=== PATIENT | female | born 1930 | race Caucasian/White ===

== ENCOUNTER 2019-02-13 12:04 | Inpatient (IN) ==
[2019-02-13] MEDS ORDERED: IPRATROPIUM/ALBUTEROL 3 ML AMPUL.NEB NEB ONE (12:08)
[2019-02-13] MEDS ORDERED: DILTIAZEM 25 MG/5 ML VIAL IV ONE ×2 (12:17→12:58)
[2019-02-13 12:46] LABS: Basophils # (Auto) 0 K/mcL (0.0-0.3); Basophils % (Auto) 0.3 % (0.0-2.0); Eosinophils # (Auto) 0.1 K/mcL (0.0-0.7); Eosinophils % (Auto) 1.5 % (0.0-7.0); Granulocytes % (Auto) 66.9 % (38.0-78.0); Lymphocytes # (Auto) 1.8 K/mcL (1.5-4.8); Lymphocytes % (Auto) 21.5 % (15.5-49.0); Mean Cell Volume 83.1 fL (80.0-100.0); Mean Corpuscular HGB Conc 32.1 g/dL (31.0-36.0); Monocytes # (Auto) 0.8 K/mcL (0.1-0.9); Monocytes % (Auto) 9.8 % (1.0-12.0); Platelet Count 289 K/mcL (140-440); Red Cell Distribution Width 16.3 % (11.5-14.5)
--- NOTE | 2019-02-13 12:47 | Emergency Department Note ---
SOB HPI - General Chief Complaint: Shortness of Breath/Dyspnea Stated Complaint: SOB Time Seen by Provider: 02/13/19 12:09 Source: patient Mode of arrival: wheelchair Limitations: no limitations - History of Present Illness 88-year-old female in ED with shortness of breath, sudden onset. 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 Patient states she is been feeling fine, does not take medications. Patient has not had any heart history or lung history. Patient fairly active. Patient has no pain at this time, no changes in bowel or bladder, no chest discomfort. MD Complaint: shortness of breath Onset (ago): minute(s) (10) Severity: moderate Consistency/Duration: constant Improves with: medication (Cardizem) Associated symptoms: Denies: chest pain, pain with inspiration, fever, cough, wheezing, lower extremity pain Treatment prior to arrival: none - Related Data Home Medications Medication Instructions Recorded Confirmed Instaflex PO BID 07/19/16 07/19/16 Instaflex Advanced PO .QD 07/19/16 07/19/16 Vital Reds Powder PO .QD 07/19/16 07/19/16 Allergies Allergy/AdvReac Type Severity Reaction Status Date / Time Penicillins [PENICILLINS] Allergy Unknown IT WAS SO Verified 02/13/19 12:05 LONG AGO I DON'T KNOW triamcinolone Allergy Unknown Unknown Verified 02/13/19 12:05 [From Nasacort AQ] Review of Systems All systems ED: reviewed and negative except as stated. 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) Adenomatous colon polyp (Chronic) Memory loss (Chronic) Osteopenia (Chronic) Hearing loss (Chronic) Right foot pain (Chronic) Hallux valgus (Chronic) DJD (degenerative joint disease) (Chronic) Flat foot (Chronic) H/O colonoscopy (Chronic) H/O: hysterectomy (Chronic) Migraine (Chronic) Arthritis (Chronic) Diverticulitis (Acute) Constipation (Acute) Past Surgical History H/O colonoscopy (Chronic) History of bilateral oophorectomy (Chronic) History of cataract extraction (Chronic) History of nasal polypectomy (Chronic) History of surgery (Chronic) History of tonsillectomy and adenoidectomy (Chronic) Family History Mother Arthritis Disorder of thyroid Grandmother Arthritis Sister-1 Malignant neoplasm of breast Sister-2 Malignant neoplasm Medical history: Reports: other Psychiatric history: Reports: no psych history - Social History smoking status: Former smoker Physical Exam Limitations: no limitations General appearance: alert, in distress (patient was shortness of breath) Head: atraumatic, normocephalic, normal inspection Eye: Present: normal appearance, PERRL, EOMI. Absent: conjunctival injection ENT: normal oropharynx, mucous membranes moist, TM's normal bilaterally, normal external ear exam Neck: Present: normal inspection. Absent: tenderness, lymphadenopathy Chest: Present: normal inspection, symmetric chest wall rise. Absent: tenderness Respiratory: Present: normal lung sounds bilaterally. Absent: respiratory distress, rales/crackles, wheezes, stridor Cardiovascular: Present: tachycardia (156 upon arrival), irregular rhythm. Abs ent: systolic murmur, diastolic murmur Abdominal: Present: soft, normal bowel sounds. Absent: distention, tenderness, guarding, rebound, rigidity Extremities: Present: normal inspection. Absent: pedal edema Back: Present: normal inspection. Absent: tenderness, CVA tenderness (R), CVA tenderness (L) Neurological: Present: alert, oriented X3, normal gait Psychiatric: Present: normal affect, normal mood. Absent: depressed, agitated, anxious, flat affect Skin: Present: warm, dry, intact, normal color. Absent: cool, diaphoretic Course Vital Signs Temperature 97.7 F 02/13/19 12:06 Pulse Rate 150 H 02/13/19 12:06 Respiratory Rate 30 H 02/13/19 12:06 Blood Pressure 146/112 02/13/19 12:06 Pulse Oximetry (%) 96 02/13/19 12:06 Temperature 97.7 F 02/13/19 15:41 Pulse Rate 83 02/13/19 15:41 Respiratory Rate 25 H 02/13/19 15:41 Blood Pressure 135/85 02/13/19 15:41 Pulse Oximetry (%) 95 02/13/19 15:41 Shortness of Breath/Dyspnea - MDM Narrative Medical decision making narrative: WBC 8.5, sodium 137, potassium 4.1, BUN 18, creatinine 1.0, troponin 0.01, p roBNP 1945.0 Nebulizer treatment with DuoNeb provided upon arrival, vagal maneuver attempted without any change in patient's heart rate 159. EKG with Sushil fib RVR. 20 mg IV Cardizem this slowed heart rate down to 110, second bolus 25 mg IV Cardizem and drip started patient A. fib approximately 80-88, patient provided 500 mg by mouth azithromycin. Consulted with who admitted pt and advised to get blood cultures and provide pt 2G Rocephin. - Lab Data Lab results reviewed: Yes I reviewed the patient's lab results. Result diagrams: 02/13/19 12:16 02/13/19 12:16 Lab Results 02/13/19 02/13/19 02/13/19 Range/Units 12:16 12:16 12:16 WBC 8.5 (4.5-11.0) K/mcL RBC 5.20 (4.00-5.20) M/mcL Hgb 13.9 (12.0-15.0) g/dL Hct 43.2 (36.0-48.0) % MCV 83.1 (80.0-100.0) fL MCH 26.7 (26.0-34.0) pg MCHC 32.1 (31.0-36.0) g/dL RDW 16.3 H (11.5-14.5) % Plt Count 289 (140-440) K/mcL MPV 10.2 (7.4-10.4) fL Gran % 66.9 (38.0-78.0) % Lymph % (Auto) 21.5 (15.5-49.0) % [place] % (Auto) 9.8 (1.0-12.0) % Eos % (Auto) 1.5 (0.0-7.0) % Baso % (Auto) 0.3 (0.0-2.0) % Gran # 5.7 (1.8-8.0) K/mcL Lymph # (Auto) 1.8 (1.5-4.8) K/mcL [place] # (Auto) 0.8 (0.1-0.9) K/mcL Eos # (Auto) 0.1 (0.0-0.7) K/mcL Baso # (Auto) 0 (0.0-0.3) K/mcL Sodium 137 (133-145) mmol/L Potassium 4.1 (3.3-5.1) mmol/L Chloride 101 (96-108) mmol/L Carbon Dioxide 21 L (22-30) mmol/L Anion Gap 15.0 (8-16) BUN 18 (8-23) mg/dl Creatinine 1.0 (0.6-1.1) mg/dl GFR Calculation 50 Glucose 168 H (70-105) mg/dL Calcium 9.3 (8.6-10.4) mg/dl Total Bilirubin 0.7 (0.0-1.0) mg/dL AST 38 H (0-37) U/l ALT 40 (0-40) U/l Alkaline Phosphatase 82 (39-117) U/L Total Creatine Kinase (24-170) IU/L CK-MB (CK-2) (0-2.9) ng/ml Myoglobin (25-58) ng/ml Troponin T < 0.01 (0-0.03) ng/ml NT-Pro-B Natriuret Pep 1945.0 H (0-450) pg/ml Total Protein 7.0 (5.9-8.4) gm/dL Albumin 4.3 (3.2-5.2) gm/dL Globulin 2.7 (2.2-3.7) gm/dL Albumin/Globulin Ratio 1.6 (1.0-2.3) 02/13/19 Range/Units 12:16 WBC (4.5-11.0) K/mcL RBC (4.00-5.20) M/mcL Hgb (12.0-15.0) g/dL Hct (36.0-48.0) % MCV (80.0-100.0) fL MCH (26.0-34.0) pg MCHC (31.0-36.0) g/dL RDW (11.5-14.5) % Plt Count (140-440) K/mcL MPV (7.4-10.4) fL Gran % (38.0-78.0) % Lymph % (Auto) (15.5-49.0) % [place] % (Auto) (1.0-12.0) % Eos % (Auto) (0.0-7.0) % Baso % (Auto) (0.0-2.0) % Gran # (1.8-8.0) K/mcL Lymph # (Auto) (1.5-4.8) K/mcL [place] # (Auto) (0.1-0.9) K/mcL Eos # (Auto) (0.0-0.7) K/mcL Baso # (Auto) (0.0-0.3) K/mcL Sodium (133-145) mmol/L Potassium (3.3-5.1) mmol/L Chloride (96-108) mmol/L Carbon Dioxide (22-30) mmol/L Anion Gap (8-16) BUN (8-23) mg/dl Creatinine (0.6-1.1) mg/dl GFR Calculation Glucose (70-105) mg/dL Calcium (8.6-10.4) mg/dl Total Bilirubin (0.0-1.0) mg/dL AST (0-37) U/l ALT (0-40) U/l Alkaline Phosphatase (39-117) U/L Total Creatine Kinase 65 (24-170) IU/L CK-MB (CK-2) 2.6 (0-2.9) ng/ml Myoglobin 58 (25-58) ng/ml Troponin T (0-0.03) ng/ml NT-Pro-B Natriuret Pep (0-450) pg/ml Total Protein (5.9-8.4) gm/dL Albumin (3.2-5.2) gm/dL Globulin (2.2-3.7) gm/dL Albumin/Globulin Ratio (1.0-2.3) - Radiology Data Radiology results reviewed: Yes I reviewed the patient's radiology results. Chest x-ray: INDICATION: Dyspnea TECHNIQUE: PA and lateral upright chest x-ray COMPARISON: None FINDINGS:Bilateral lower lobe infiltrates and small effusions. Findings are consistent with pneumonia. Follow-up radiographs recommended. Heart size is within normal limits. There is no evidence for pulmonary edema or significant pulmonary congestion. Raina and mediastinum are negative. IMPRESSION: 1. Bilateral lower lobe infiltrates and small effusions 2. Findings are most consistent with pneumonia Disposition Pt seen by [employer]PERATOR/PA only: No (Chin) Clinical Impression: Atrial fibrillation with RVR Community acquired pneumonia Qualifiers: Laterality: left Lung location: lower lobe of lung Qualified Code(s): J18.1 - Lobar pneumonia, unspecified organism Disposition: Xfer As Inpt ([facility]) Condition: Good Time of Disposition: 16:04
--- NOTE | 2019-02-13 12:54 | XRay Report ---
INDICATION: Dyspnea TECHNIQUE: PA and lateral upright chest x-ray COMPARISON: None FINDINGS:Bilateral lower lobe infiltrates and small effusions. Findings are consistent with pneumonia. Follow-up radiographs recommended. Heart size is within normal limits. There is no evidence for pulmonary edema or significant pulmonary congestion. Raina and mediastinum are negative. IMPRESSION: 1. Bilateral lower lobe infiltrates and small effusions 2. Findings are most consistent with pneumonia Interpreted and Authenticated by: Finn Pratt 02/13/19
[2019-02-13 13:11] LABS: ALT/SGPT 40 U/l (0-40); Albumin 4.3 gm/dL (3.2-5.2); Albumin/Globulin Ratio 1.6 (1.0-2.3); Alkaline Phosphatase 82 U/L (39-117); Blood Urea Nitrogen 18 mg/dl (8-23)
[2019-02-13] MEDS ORDERED: DILTIAZEM 125 MG in DEXTROSE 5% IN WATER 100 ML IV SCH (13:15)
[2019-02-13] MEDS ORDERED: AZITHROMYCIN 250 MG TABLET PO ONE (13:22)
[2019-02-13] MEDS ORDERED: cefTRIAXone 2 GM in DEXTROSE 5% IN WATER 50 ML IV ONE (14:36)
--- NOTE | 2019-02-13 14:41 | Internal Med History&Physical ---
Medical - H&P: [facility] Patient information: Note initiated : 02/13/19 at 2:40 pm Service Date, if different from initiated Date: [] Patient: Neris Quintanilla 88 y/o F admitted on for Shortness of breath. Chief Complaint: [] Chief complaint: shortness of breath/palpitations History of present illness: Ms. 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 She felt sensation of chest pressure along with difficulty ambulating, weakness. Patient subsequently was evaluated in the ER. Initial workup was consistent with A. fib RVR along with bilateral pneumonia. Patient was started on diltiazem drip. Heart rate improved from 150s to 120s. Was also started on antibiotic coverage after cultures were drawn. Patient does not endorse to sick contact or aspiration episode. She denies changes in medications. She denies weight gain, weight loss, smoking. She is unclear about pneumonia vaccine status. She is accompanied by her daughter. She wss able to answer most the question and was able to talk in full sentences. She denies chest palpitations, lightheadedness, dizziness, shaking chills, drenching sweats, diarrhea or dysuria or abdominal pain. She denies nausea vomiting. She denies any similar episodes in the past or taking [id number] supplements, weight loss medication or cough syrup. She has been feeling poorly and weak over the last 5-7 days but did not have any productive sputum or cough At the time of evaluation patient is alert oriented. She is able to endorse history as above. 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 had migraines in high school. Osteopenia (Chronic) Right foot pain (Chronic) Sprain, ACL (Chronic) Surgical History History of surgery (Chronic) Benign liver tumor excision History of nasal polypectomy (Chronic) right History of bilateral oophorectomy (Chronic) History of cataract extraction (Chronic) History of tonsillectomy and adenoidectomy (Chronic) 193 H/O colonoscopy (Chronic) 2012 H/O: hysterectomy (Chronic) 1979 Family History Mother Arthritis Disorder of thyroid Grandmother Arthritis Sister-1 Malignant neoplasm of breast Sister-2 Malignant neoplasm Blood cancer Social History marital status: occupational status: retired physical activity: walking smoking status: Former smoker alcohol intake frequency: 0-2 drinks per day substance use type: does not use Medical - H&P: Meds Home Medications Medication Instructions Recorded Confirmed Type Instaflex PO BID 07/19/16 07/19/16 History Instaflex Advanced PO .QD 07/19/16 07/19/16 History Vital Reds Powder PO .QD 07/19/16 07/19/16 History Allergies Allergy/AdvReac Type Severity Reaction Status Date / Time Penicillins [PENICILLINS] Allergy Unknown IT WAS SO Verified 02/13/19 16:40 LONG AGO I DON'T KNOW triamcinolone Allergy Unknown Unknown Verified 02/13/19 16:40 [From Nasacort AQ] Medical - H&P: Exam - Constitutional Vitals: Temp Pulse Resp BP Pulse Ox 97.7 F 85 30 H 141/74 92 02/13/19 12:06 02/13/19 13:11 02/13/19 13:11 02/13/19 13:11 02/13/19 13:11 General appearance: no acute distress Exam: Patient alert and oriented Head normocephalic Oral cavity dry No ear discharge No scleral icterus Neck no lymphadenopathy S1 and S2 regular rhythm Diminished breath sounds bilaterally posterior and lateral chest with late inspiratory crackles Abdomen soft nontender Lower extremity no cyanosis or clubbing or joint swelling Skin no suspicious lesion Psych alert cooperative Neuro nonfocal Medical - H&P: Reslt - Labs CBC & Chem 7: 02/14/19 03:24 02/14/19 03:24 Labs: Short CBC 02/13/19 Range/Units 12:16 WBC 8.5 (4.5-11.0) K/mcL Hgb 13.9 (12.0-15.0) g/dL Hct 43.2 (36.0-48.0) % Plt Count 289 (140-440) K/mcL BMP 02/13/19 12:16 Sodium 137 Potassium 4.1 Chloride 101 Carbon Dioxide 21 L BUN 18 Creatinine 1.0 Glucose 168 H Calcium 9.3 Cardiac Enzymes 02/13/19 Range/Units 12:16 Troponin T < 0.01 (0-0.03) ng/ml Liver Function 02/13/19 Range/Units 12:16 Total Bilirubin 0.7 (0.0-1.0) mg/dL AST 38 H (0-37) U/l ALT 40 (0-40) U/l Alkaline Phosphatase 82 (39-117) U/L Albumin 4.3 (3.2-5.2) gm/dL Medical - H&P: A/P (1) Atrial fibrillation with RVR Current visit: Yes Status: Acute * Afib RVR- initiated control measures. Continue CCB/beta liz . Await echocardiogram. Chads score 1. Start aspirin. If persist patient will need 28 days of anticoagulation before cardioversion * B/L PNA- Community Acquired vs Aspiration. Check mycoplasma/Streptococcus serology. Check pro-calcitonin. Continue antibiotics * Prophylaxis heparin * Full code Plan * Continue antibiotics * Check pro calcitonin * Await echocardiogram * CCB/Beta liz for rate control * PT OT/nutrition support * Inpatient telemetry admitted
[2019-02-13 14:42] LABS: Creatine Kinase 65 IU/L (24-170); Creatine Kinase MB 2.6 ng/ml (0-2.9); Myoglobin 58 ng/ml (25-58)
[2019-02-13] MEDS ORDERED: ONDANSETRON 4 MG/2 ML VIAL IV PRN (15:54)
[2019-02-13] MEDS ORDERED: cefTRIAXone 2 GM in DEXTROSE 5% IN WATER 50 ML IV SCH (15:54)
[2019-02-13] MEDS ORDERED: ACETAMINOPHEN 1,000 MG/100 ML BOTTLE IV PRN (15:54)
[2019-02-13] MEDS ORDERED: POTASSIUM CHLORIDE 20 MEQ PACKET PO PRN (15:54)
[2019-02-13] MEDS ORDERED: ACETAMINOPHEN 325 MG TABLET PO PRN (15:54)
[2019-02-13] MEDS ORDERED: MAGNESIUM SULFATE 2 GM/50 ML BAG IV PRN (15:54)
[2019-02-13] MEDS ORDERED: LEVOFLOXACIN 750 MG/150 ML BAG IV SCH (15:54)
[2019-02-13 16:27] LABS: C-Reactive Protein 0.3 mg/dl (0.0-0.8)
[2019-02-13] MEDS: DILTIAZEM 125 MG in 0.9 % SODIUM CHLORIDE 100 ML IV SCH (16:32)
[2019-02-13] MEDS: METOPROLOL TARTRATE 5 MG/5 ML VIAL IV SCH (17:11)
[2019-02-13] MEDS: LEVOFLOXACIN 750 MG/150 ML BAG IV SCH (17:41)
--- NOTE | 2019-02-13 19:32 | Emergency Department Note ---
ED Note Addendum Note Addendum: seen inconsultation with kelvin and agree with need to admitt
[2019-02-13] MEDS: BUDESONIDE 0.5 MG/2 ML AMPUL.NEB NEB SCH (20:24)
[2019-02-13] MEDS: DOCUSATE SODIUM 100 MG CAPSULE PO SCH (21:19)
[2019-02-13] MEDS: SENNOSIDES/DOCUSATE SODIUM 1 TAB TABLET PO SCH (21:19)
[2019-02-13] MEDS: 0.9 % SODIUM CHLORIDE 10 ML SYRINGE IV SCH (22:00)
[2019-02-14] MEDS: DILTIAZEM 125 MG in 0.9 % SODIUM CHLORIDE 100 ML IV SCH (05:48)
[2019-02-14] MEDS: 0.9 % SODIUM CHLORIDE 10 ML SYRINGE IV SCH ×3 (05:48→20:14)
[2019-02-14 06:06] LABS: Mean Cell Volume 83.3 fL (80.0-100.0); Mean Corpuscular HGB Conc 32.1 g/dL (31.0-36.0); Platelet Count 240 K/mcL (140-440); RBC 4.41 M/mcL (4.00-5.20); Red Cell Distribution Width 16.5 % (11.5-14.5)
[2019-02-14 06:35] LABS: ALT/SGPT 32 U/l (0-40); Albumin 3.4 gm/dL (3.2-5.2); Albumin/Globulin Ratio 1.5 (1.0-2.3); Alkaline Phosphatase 62 U/L (39-117); Bilirubin,Direct < 0.2 mg/dL (0.0-0.3); Blood Urea Nitrogen 14 mg/dl (8-23); Gamma Glutamyl Transpeptidase 31 U/L (5-36); Uric Acid 4.5 mg/dL (2.5-8.0)
[2019-02-14 06:38] LABS: Anisocytosis 1+ (NONE SEEN); Eosinophils % (Manual) 3 % (0-7); Lymphocytes % 24 % (15-49); Monocytes % (Manual) 8 % (1-12); Platelet Estimate NORMAL (NORMAL); RBC Morphology ABNORM (NORMAL); Segmented Neutrophils % 65 % (38-78)
[2019-02-14] MEDS: METOPROLOL TARTRATE 5 MG/5 ML VIAL IV PRN ×2 (07:24→19:51)
[2019-02-14] MEDS: IPRATROPIUM/ALBUTEROL 3 ML AMPUL.NEB NEB PRN ×2 (07:27→20:04)
[2019-02-14] MEDS: BUDESONIDE 0.5 MG/2 ML AMPUL.NEB NEB SCH ×2 (07:27→20:04)
[2019-02-14] MEDS ORDERED: cefTRIAXone 2 GM in DEXTROSE 5% IN WATER 50 ML IV SCH (09:00)
--- NOTE | 2019-02-14 10:05 | XRay Report ---
INDICATION: Dyspnea. Pneumonia. TECHNIQUE: AP chest x-ray,portable upright COMPARISON: Previous chest x-ray dated 02/13/2019 FINDINGS:Previous examination demonstrated bibasilar pulmonary parenchymal density. Findings are worse. There are bilateral, predominantly bibasilar infiltrates. There are bilateral pleural effusions. Pulmonary vascularity is prominent. Appearance is consistent with acute congestive heart failure. This may be superimposed upon bibasilar pneumonia. Clinical correlation and follow-up radiographs recommended IMPRESSION: 1. Interval worsening since 02/13/2019 2. Findings consistent with congestive heart failure Interpreted and Authenticated by: Finn Pratt 02/14/19
[2019-02-14] MEDS: ASPIRIN 81 MG TAB.CHEW CHEWED SCH (10:07)
[2019-02-14] MEDS: MULTIVIT,THER IRON,CA,FA & MIN 1 TABLET PO SCH (10:07)
[2019-02-14] MEDS: DOCUSATE SODIUM 100 MG CAPSULE PO SCH ×2 (10:07→20:13)
[2019-02-14] MEDS: METOPROLOL TARTRATE 25 MG TABLET PO SCH ×2 (10:07→20:13)
--- NOTE | 2019-02-14 10:35 | Internal Med Progress Note ---
Medical - PN: Subj Patient information: Note initiated : 02/14/19 at 10:33 am Service Date, if different from initiated Date: [] Patient: Neris Quintanilla 88 y/o F admitted on 02/13/19 for Shortness of breath. Chief Complaint: [] Interval history: Ms. 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 She felt sensation of chest pressure along with difficulty ambulating, weakness. Patient subsequently was evaluated in the ER. Initial workup was consistent with A. fib RVR along with bilateral pneumonia. Patient was started on diltiazem drip. Heart rate improved from 150s to 120s. Was also started on antibiotic coverage after cultures were drawn. Patient does not endorse to sick contact or aspiration episode. She denies changes in medications. She denies weight gain, weight loss, smoking. She is unclear about pneumonia vaccine status. She is accompanied by her daughter. She wss able to answer most the question and was able to talk in full sentences. She denies chest palpitations, lightheadedness, dizziness, shaking chills, dr enching sweats, diarrhea or dysuria or abdominal pain. She denies nausea vomiting. She denies any similar episodes in the past or taking [id number]-[id number] supplements, weight loss medication or cough syrup. She has been feeling poorly and weak over the last 5-7 days but did not have any productive sputum or cough At the time of evaluation patient is alert oriented. She is able to endorse history as above. 10-family members at bedside. Patient feeling poorly this morning with intermittent RVR recording beta liz. Started on oral beta liz. Chest x-ray shows pulmonary edema with CHF. Start aggressive diuresis. Repeat echocardiogram. De-escalate antibiotics in the setting of negative pro- calcitonin and likely exacerbation of bilateral infiltrates as pulmonary edema. Continue telemetry monitoring - Constitutional Vitals: Vital Signs Temp Pulse Resp BP Pulse Ox 97.3 F 74 18 124/75 94 02/14/19 07:20 02/14/19 07:44 02/14/19 07:49 02/14/19 07:34 02/14/19 07:49 Period Temp Pulse Resp BP Sys/Thornton Pulse Ox Last 24 Hr 97.3 F-98.6 F 56-150 14-32 110-146/64-112 86-98 Intake and Output 02/13/19 02/14/19 02/14/19 21:59 05:59 13:59 Intake Total 572 62 42 Output Total 350 Balance 222 62 42 Weight 147 lb Intake & Output: Intake & Output 02/13/19 02/14/19 02/14/19 21:59 05:59 13:59 Intake Total 572 62 42 Output Total 350 Balance 222 62 42 Weight 147 lb Intake: IV 212 62 42 Cardizem 125 mg In Dextrose 5% 12 in Water 100 ml @ 5 MG/HR 5 mls /hr IV Q12H DAREK Rx#:[id number] Rocephin 2 gm In Dextrose 5% in 50 Water 50 ml @ 100 mls/hr IV ONCE ONE Rx#:[id number] Oral 360 Output: Void Amount 350 Other: Meal Dinner Percent of Meal Consumed 100% 0% Feeding Ability Assist with Tray Set Up Urine Appearance Clear Urine Color Pale Stool Size Moderate Stool Color Brown Stool Consistency Soft Liquid # Voids 1 2 1 # Bowel Movements 1 General appearance: no acute distress Exam: Diminished breath sounds bases Alert oriented Labored breathing No telemetry events except for A. fib RVR No lymphedema Medical - PN: Obj Da - Labs CBC & Chem 7: 02/14/19 03:24 02/14/19 03:24 Labs: Abnormal Lab Results 02/14/19 02/14/19 02/13/19 03:24 03:24 12:16 Hgb 11.8 L RDW 16.5 H RBC Morphology Abnorm A Anisocytosis 1+ A Carbon Dioxide 19 L 21 L Glucose 168 H AST 38 H NT-Pro-B Natriuret Pep 1945.0 H Total Protein 5.7 L 02/13/19 12:16 Hgb RDW 16.3 H RBC Morphology Anisocytosis Carbon Dioxide Glucose AST NT-Pro-B Natriuret Pep Total Protein Meds: Medications Acetaminophen (Tylenol) 650 mg PO Q4-6HP PRN PRN Reason: PAIN/FEVER > 101 Albuterol/Ipratropium (Duoneb) 3 ml NEB Q4HP PRN PRN Reason: Shortness Of Breath Last Admin: 02/14/19 07:27 Dose: 3 ml Documented by: Aspirin (Aspirin) 81 mg CHEWED DAILY [facility] Last Admin: 02/14/19 10:07 Dose: 81 mg Documented by: Budesonide (Pulmicort) 0.5 mg NEB Q12 [facility] Last Admin: 02/14/19 07:27 Dose: 0.5 mg Documented by: Docusate Sodium (Colace) 100 mg PO BID [facility] Last Admin: 02/14/19 10:07 Dose: 100 mg Documented by: Furosemide (Lasix) 20 mg IV BIDD [facility] Magnesium Sulfate (Magnesium Sulfate) 2 gm in 50 mls @ 50 mls/hr IV UD PRN PRN Reason: MG = or < 1.7 Acetaminophen (Ofirmev) 1,000 mg in 100 mls @ 200 mls/hr IV Q6HP PRN PRN Reason: PAIN/FEVER > 101 Levofloxacin (Levaquin) 750 mg in 150 mls @ 100 mls/hr IV Q48H [facility]; Protocol Last Infusion: 02/13/19 19:11 Dose: Infused Documented by: Iron Carb/Multivit/Three Way/Folic Acid (Multivitamin W/Minerals) 1 tab PO DAILY [facility] Last Admin: 02/14/19 10:07 Dose: 1 tab Documented by: Metoprolol Tartrate (Lopressor) 5 mg IV Q5M PRN PRN Reason: Tachyarrhythmias Stop: 02/19/19 17:26 Last Admin: 02/14/19 07:24 Dose: 5 mg Documented by: Metoprolol Tartrate (Lopressor) 25 mg PO BID [facility] Last Admin: 02/14/19 10:07 Dose: 25 mg Documented by: Ondansetron HCl (Zofran) 4 mg IV Q4-6HP PRN PRN Reason: Nausea And Vomiting Potassium Chloride (Klor-Con) 40 meq PO DAILYP PRN PRN Reason: K+ < 3.5 Senna/Docusate Sodium (Senna Plus Tablet) 1 tab PO HS [facility] Last Admin: 02/13/19 21:19 Dose: Not Given Documented by: Sodium Chloride (Saline Flush) 10 ml IV Q8 [facility] Last Admin: 02/14/19 05:48 Dose: 10 ml Documented by: Medical - PN: A/P - Time Spent With Patient Total time spent is greater than 50% in coordination of care (as documented) at patient's floor/unit and/or counseling patient: 25 - 35 minutes (1) Atrial fibrillation with RVR Status: Acute Assessment and plan: * Acute decompensated heart failure with pulmonary edema-echocardiogram/initiate aggressive diuresis. Optimize CHF management based on echo finding. * Afib RVR- rate controlled on beta liz. Await echocardiogram. Chads score 1. Start aspirin. If persist patient will need 28 days of anticoagulation before cardioversion * B/L PNA- Community Acquired vs Aspiration. Check mycoplasma/Streptococcus serology. De-escalate antibiotics as pro-calcitonin negative * Prophylaxis heparin * Full code Plan * Start aggressive diuresis * De-escalate antibiotics * Await echocardiogram * Beta liz for rate control * PT OT/nutrition support Current Visit: Yes Medical - PN: Qual - VTE Deep Vein Thrombosis/Pulmonary Embolism Present on Admission: No
[2019-02-14] MEDS: FUROSEMIDE 20 MG/2 ML VIAL IV SCH ×2 (11:09→16:12)
[2019-02-14 17:22] LABS: Appearance,Urine CLEAR; Bacteria,Urine 0 /hpf (0); Bilirubin,Urine NEG (NEG); Color,Urine YELLOW; Glucose,Urine (UA) NEGATIVE (NEG); Leukocyte Esterase,Urine NEG /uL (NEG); Mucus,Urine FEW /hpf (0); Protein,Urine NEG (NEG); Urine Blood NEG mg/dL (<0.03); Urine Hyaline Cast 4 /lpf (0-2); Urine RBC < 1 /hpf (0-1); Urine Squamous Epithelial Cell < 1 /hpf (0-4); Urine WBC 3 /hpf (0-4); Urobilinogen,Urine NEG (NEG)
[2019-02-14] MEDS: SENNOSIDES/DOCUSATE SODIUM 1 TAB TABLET PO SCH (20:13)
[2019-02-14] MEDS: DILTIAZEM 25 MG/5 ML VIAL IV PRN (22:00)
[2019-02-14] MEDS ORDERED: DILTIAZEM 25 MG/5 ML VIAL IV ONE (22:02)
[2019-02-15] MEDS ORDERED: DILTIAZEM 25 MG/5 ML VIAL IV ONE (03:14)
[2019-02-15 05:40] LABS: Mean Cell Volume 83.4 fL (80.0-100.0); Mean Corpuscular HGB Conc 32.2 g/dL (31.0-36.0); Platelet Count 254 K/mcL (140-440); RBC 4.71 M/mcL (4.00-5.20); Red Cell Distribution Width 16.6 % (11.5-14.5)
[2019-02-15 06:03] LABS: ALT/SGPT 35 U/l (0-40); Albumin 3.7 gm/dL (3.2-5.2); Albumin/Globulin Ratio 1.5 (1.0-2.3); Alkaline Phosphatase 76 U/L (39-117); Bilirubin,Direct < 0.2 mg/dL (0.0-0.3); Blood Urea Nitrogen 15 mg/dl (8-23); Gamma Glutamyl Transpeptidase 39 U/L (5-36); Uric Acid 4.6 mg/dL (2.5-8.0)
[2019-02-15 06:21] LABS: Eosinophils % (Manual) 3 % (0-7); Lymphocytes % 18 % (15-49); Monocytes % (Manual) 9 % (1-12); Platelet Estimate NORMAL (NORMAL); RBC Morphology NORMAL (NORMAL); Segmented Neutrophils % 70 % (38-78)
[2019-02-15] MEDS: 0.9 % SODIUM CHLORIDE 10 ML SYRINGE IV SCH ×4 (06:45→21:08)
[2019-02-15] MEDS: FUROSEMIDE 20 MG/2 ML VIAL IV SCH ×2 (08:22→15:42)
[2019-02-15] MEDS: MULTIVIT,THER IRON,CA,FA & MIN 1 TABLET PO SCH (08:23)
[2019-02-15] MEDS: ASPIRIN 81 MG TAB.CHEW CHEWED SCH (08:23)
[2019-02-15] MEDS: DOCUSATE SODIUM 100 MG CAPSULE PO SCH ×2 (08:24→19:03)
[2019-02-15] MEDS ORDERED: METOPROLOL SUCCINATE 50 MG TAB.XL.24H PO SCH (09:00)
[2019-02-15] MEDS: BUDESONIDE 0.5 MG/2 ML AMPUL.NEB NEB SCH ×2 (09:38→21:09)
[2019-02-15] MEDS: IPRATROPIUM/ALBUTEROL 3 ML AMPUL.NEB NEB PRN (09:38)
[2019-02-15] MEDS: LEVOFLOXACIN 750 MG/150 ML BAG IV SCH (09:52)
[2019-02-15] MEDS: APIXABAN 5 MG TABLET PO SCH ×2 (09:55→21:08)
--- NOTE | 2019-02-15 10:15 | Internal Med Progress Note ---
Medical - PN: Subj Patient information: Note initiated : 02/15/19 at 10:12 am Service Date, if different from initiated Date: [] Patient: Neris Quintanilla 88 y/o F admitted on 02/13/19 for Shortness of breath. Chief Complaint: [] Interval history: Ms. 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 She felt sensation of chest pressure along with difficulty ambulating, weakness. Patient subsequently was evaluated in the ER. Initial workup was consistent with A. fib RVR along with bilateral pneumonia. Patient was started on diltiazem drip. Heart rate improved from 150s to 120s. Was also started on antibiotic coverage after cultures were drawn. Patient does not endorse to sick contact or aspiration episode. She denies changes in medications. She denies weight gain, weight loss, smoking. She is unclear about pneumonia vaccine status. She is accompanied by her daughter. She wss able to answer most the question and was able to talk in full sentences. She denies chest palpitations, lightheadedness, dizziness, shaking chills, edith nching sweats, diarrhea or dysuria or abdominal pain. She denies nausea vomiting. She denies any similar episodes in the past or taking gzwl-qas-kwuzkcm supplements, weight loss medication or cough syrup. She has been feeling poorly and weak over the last 5-7 days but did not have any productive sputum or cough At the time of evaluation patient is alert oriented. She is able to endorse history as above. 02/14-family members at bedside. Patient feeling poorly this morning with intermittent RVR recording beta liz. Started on oral beta liz. Chest x-ray shows pulmonary edema with CHF. Start aggressive diuresis. Repeat echocardiogram. De-escalate antibiotics in the setting of negative pro- calcitonin and likely exacerbation of bilateral infiltrates as pulmonary edema. Continue telemetry monitoring 02/15 Patient seen and examined, no acute overnight events she was sitting comfortably on bed. Heart rate is still elevated, dose of metoprolol increased 200 mg daily, IV Cardizem as needed. Echocardiogram done shows left ventricle size is normal mild LVH right atrium is moderate to severely dilated moderate to severe mitral regurgitation IVC collapses less than 50%. Chads vas score is 3, initially the patient was placed on aspirin we will stop that and start the patient on Eliquis Continue diuresis Pertinent ROS: Denies headache, dizziness Denies chest pain, palpitations Denies cough or shortness of breath Denies abdominal pain, nausea or vomiting. - Constitutional Vitals: Vital Signs Temp Pulse Resp BP Pulse Ox 98 F 97 H 16 130/99 95 02/15/19 08:00 02/15/19 09:49 02/15/19 09:49 02/15/19 08:00 02/15/19 09:38 Period Temp Pulse Resp BP Sys/Thornton Pulse Ox Last 24 Hr 97.5 F-98.5 F 89-140 16-26 116-144/73-99 88-97 Intake and Output 02/14/19 02/15/19 02/15/19 21:59 05:59 13:59 Intake Total 300 480 Output Total 1050 300 450 Balance -750 -300 30 Weight 146 lb 11.2 oz Intake & Output: Intake & Output 02/14/19 02/15/19 02/15/19 21:59 05:59 13:59 Intake Total 300 480 Output Total 1050 300 450 Balance -750 -300 30 Weight 146 lb 11.2 oz Intake: Oral 300 480 Output: Void Amount 900 250 Urine/Stool Mix 100 Stool 50 300 200 Other: Meal Dinner Breakfast Percent of Meal Consumed 100% 100% Feeding Ability Independent Independent Urine Appearance Clear Urine Color Bright Yellow Urine Odor Normal Stool Size Small Moderate Stool Color Brown Brown Green Stool Consistency Loose Loose # Bowel Movements 1 Exam: Constitutional; Afebrile, cooperative, alert, not in distress. Respiratory system: Air Entry equal on both sides, No crackles or wheezing, no rhonchi. CVS- Rate rhythm irregular, S1,S2 heard, no gallop, no rub. 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 Medical - PN: Obj Da - Labs CBC & Chem 7: 02/15/19 03:34 02/15/19 03:34 Labs: Abnormal Lab Results 02/15/19 02/15/19 02/14/19 03:34 03:34 16:48 Hgb RDW 16.6 H RBC Morphology Anisocytosis Carbon Dioxide 21 L Glucose 117 H GGT 39 H AST NT-Pro-B Natriuret Pep Total Protein Hyaline Casts 4 H 02/14/19 02/14/19 02/13/19 03:24 03:24 12:16 Hgb 11.8 L RDW 16.5 H RBC Morphology Abnorm A Anisocytosis 1+ A Carbon Dioxide 19 L 21 L Glucose 168 H GGT AST 38 H NT-Pro-B Natriuret Pep 1945.0 H Total Protein 5.7 L Hyaline Casts 02/13/19 12:16 Hgb RDW 16.3 H RBC Morphology Anisocytosis Carbon Dioxide Glucose GGT AST NT-Pro-B Natriuret Pep Total Protein Hyaline Casts Meds: Medications Acetaminophen (Tylenol) 650 mg PO Q4-6HP PRN PRN Reason: PAIN/FEVER > 101 Albuterol/Ipratropium (Duoneb) 3 ml NEB Q4HP PRN PRN Reason: Shortness Of Breath Last Admin: 02/15/19 09:38 Dose: 3 ml Documented by: Apixaban (Eliquis) 5 mg PO BID [facility] Last Admin: 02/15/19 09:55 Dose: 5 mg Documented by: Budesonide (Pulmicort) 0.5 mg NEB Q12 [facility] Last Admin: 02/15/19 09:38 Dose: 0.5 mg Documented by: Diltiazem HCl (Cardizem) 10 mg IV Q2HP PRN PRN Reason: Tachyarrythmia Docusate Sodium (Colace) 100 mg PO BID [facility] Last Admin: 02/15/19 08:24 Dose: Not Given Documented by: Furosemide (Lasix) 20 mg IV BIDD [facility] Last Admin: 02/15/19 08:22 Dose: 20 mg Documented by: Magnesium Sulfate (Magnesium Sulfate) 2 gm in 50 mls @ 50 mls/hr IV UD PRN PRN Reason: MG = or < 1.7 Acetaminophen (Ofirmev) 1,000 mg in 100 mls @ 200 mls/hr IV Q6HP PRN PRN Reason: PAIN/FEVER > 101 Levofloxacin (Levaquin) 750 mg in 150 mls @ 100 mls/hr IV Q48H [facility]; Protocol Last Admin: 02/15/19 09:52 Dose: 100 mls/hr Documented by: Iron Carb/Multivit/[place]/Folic Acid (Multivitamin W/Minerals) 1 tab PO DAILY [facility] Last Admin: 02/15/19 08:23 Dose: 1 tab Documented by: Metoprolol Succinate (Toprol Xl) 100 mg PO DAILY [facility] Last Admin: 02/15/19 08:23 Dose: 100 mg Documented by: Metoprolol Tartrate (Lopressor) 5 mg IV Q5M PRN PRN Reason: Tachyarrhythmias Stop: 02/19/19 17:26 Last Admin: 02/14/19 19:51 Dose: 5 mg Documented by: Ondansetron HCl (Zofran) 4 mg IV Q4-6HP PRN PRN Reason: Nausea And Vomiting Potassium Chloride (Klor-Con) 40 meq PO DAILYP PRN PRN Reason: K+ < 3.5 Senna/Docusate Sodium (Senna Plus Tablet) 1 tab PO HS [facility] Last Admin: 02/14/19 20:13 Dose: Not Given Documented by: Sodium Chloride (Saline Flush) 10 ml IV Q8 [facility] Last Admin: 02/15/19 06:45 Dose: 10 ml Documented by: Medical - PN: A/P - Time Spent With Patient Total time spent is greater than 50% in coordination of care (as documented) at patient's floor/unit and/or counseling patient: - Narrative A/P Narrative: A/P Acute decompensated Diastolic Heart failure -echo shows grade 3 diastolic HF, IV diuresis, bp control Atrial fibrillation with RVR -PSOU2Obyb score is 3 -start on eliquis -metoprolol 100mg po dailyi for rate control, IV cardizem prn Pneumoina -on levofloxacin, clinically improving, continue same Acute hypoxic respiratory failure -still on 2 L oxygen, wean off as tolerated DVT -eliquis Medical - PN: Qual - VTE Deep Vein Thrombosis/Pulmonary Embolism Present on Admission: No
[2019-02-15] MEDS: METOPROLOL SUCCINATE 50 MG TAB.XL.24H PO SCH ×2 (18:47→19:03)
[2019-02-15] MEDS: SENNOSIDES/DOCUSATE SODIUM 1 TAB TABLET PO SCH (21:08)
[2019-02-15] MEDS: DILTIAZEM 25 MG/5 ML VIAL IV PRN (23:47)
[2019-02-16] MEDS: 0.9 % SODIUM CHLORIDE 10 ML SYRINGE IV SCH ×2 (05:45→09:12)
[2019-02-16 06:00] LABS: ALT/SGPT 34 U/l (0-40); Albumin 3.4 gm/dL (3.2-5.2); Albumin/Globulin Ratio 1.4 (1.0-2.3); Alkaline Phosphatase 69 U/L (39-117); Bilirubin,Direct < 0.2 mg/dL (0.0-0.3); Blood Urea Nitrogen 21 mg/dl (8-23); Gamma Glutamyl Transpeptidase 34 U/L (5-36); Uric Acid 4.7 mg/dL (2.5-8.0)
[2019-02-16 06:07] LABS: Anisocytosis 1+ (NONE SEEN); Basophils % (Manual) 1 % (0-2); Eosinophils % (Manual) 4 % (0-7); Hypochromasia 1+ (NONE SEEN); Lymphocytes % 32 % (15-49); Monocytes % (Manual) 8 % (1-12); Platelet Estimate NORMAL (NORMAL); RBC Morphology ABNORM (NORMAL); Segmented Neutrophils % 55 % (38-78)
[2019-02-16 06:15] LABS: Platelet Count 252 K/mcL (140-440); RBC 4.77 M/mcL (4.00-5.20); Red Cell Distribution Width 16.2 % (11.5-14.5)
[2019-02-16] MEDS ORDERED: METOPROLOL SUCCINATE 50 MG TAB.XL.24H PO SCH ×2 (09:00)
[2019-02-16] MEDS ORDERED: DILTIAZEM 120 MG CAP.XL.24H PO SCH (09:00)
[2019-02-16] MEDS: IPRATROPIUM/ALBUTEROL 3 ML AMPUL.NEB NEB PRN (09:06)
[2019-02-16] MEDS: BUDESONIDE 0.5 MG/2 ML AMPUL.NEB NEB SCH (09:06)
[2019-02-16] MEDS: MULTIVIT,THER IRON,CA,FA & MIN 1 TABLET PO SCH (09:12)
[2019-02-16] MEDS: FUROSEMIDE 20 MG/2 ML VIAL IV SCH (09:12)
[2019-02-16] MEDS: APIXABAN 5 MG TABLET PO SCH (09:12)
[2019-02-16] MEDS: DOCUSATE SODIUM 100 MG CAPSULE PO SCH (09:13)
--- NOTE | 2019-02-16 11:00 | Discharge Summary ---
Medical - DS: Prov Patient information: Note initiated : 02/16/19 at 10:58 am Service Date, if different from initiated Date: [] Patient: Neris Quintanilla 88 y/o F admitted on 02/13/19 for Shortness of breath. Chief Complaint: [] Date of admission: 02/13/19 13:30 Discharge date: 02/16/19 Primary care physician: Marilu Amaya DO Consults: 02/13/19 14:34 Consult to Physician [CONS] Stat Comment: Consulting Provider: Miguel Sutton Reason For Exam: Physician to Consult Discharging clinician: Kelle Santiago Medical - DS: Meds - Discharge Medications Prescriptions: Apixaban [Eliquis] 5 mg PO BID #60 tab Diltiazem [Cardizem Cd] 120 mg PO DAILY #30 cap.xl.24h Furosemide [Lasix] 20 mg PO DAILY #30 tab Metoprolol Succinate [Toprol Xl] 100 mg PO DAILY #30 tab.xl.24h Active and Home Medications: Home Medications Instaflex PO BID 07/19/16 [History Confirmed 07/19/16 Last Taken Unknown] Instaflex Advanced PO .QD 07/19/16 [History Confirmed 07/19/16 Last Taken Unknown] Vital Reds Powder PO .QD 07/19/16 [History Confirmed 07/19/16 Last Taken Unknown] Medical - DS: Hosp Hospital course: Ms. 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 She felt sensation of chest pressure along with difficulty ambulating, weakness. Patient subsequently was evaluated in the ER. Initial workup was consistent with A. fib RVR along with bilateral pneumonia. Patient was started on diltiazem drip. Heart rate improved from 150s to 120s. Was also started on antibiotic coverage after cultures were drawn. Patient does not endorse to sick contact or aspiration episode. She denies changes in medications. She denies weight gain, weight loss, smoking. She is unclear about pneumonia vaccine status. She is accompanied by her daughter. She wss able to answer most the question and was able to talk in full sentences. She denies chest palpitations, lightheadedness, dizziness, shaking chills, drenching sweats, diarrhea or dysuria or abdominal pain. She denies nausea vomiting. She denies any similar episodes in the past or taking rywo-tok-kdndorn supplements, weight loss medication or cough syrup. She has been feeling poorly and weak over the last 5-7 days but did not have any productive sputum or cough At the time of evaluation patient is alert oriented. She is able to endorse history as above. 02/14-family members at bedside. Patient feeling poorly this morning with intermittent RVR recording beta liz. Started on oral beta liz. Chest x-ray shows pulmonary edema with CHF. Start aggressive diuresis. Repeat echocardiogram. De-escalate antibiotics in the setting of negative pro- calcitonin and likely exacerbation of bilateral infiltrates as pulmonary edema. Continue telemetry monitoring 02/15 Patient seen and examined, no acute overnight events she was sitting comfortably on bed. Heart rate is still elevated, dose of metoprolol increased 200 mg daily, IV Cardizem as needed. Echocardiogram done shows left ventricle size is normal mild LVH right atrium is moderate to severely dilated moderate to severe mitral regurgitation IVC collapses less than 50%. Chads vas score is 3, initially the patient was placed on aspirin we will stop that and start the patient on Eliquis Continue diuresis 02/16 Patient seen examined, no acute events, off oxygen now. HR stable, between 90 - 110, on metoprolol sr 100mg po daily, cardizem 120 mg daily, stable for discharge. In summary Patient admitted to the hospital with A. fib with RVR, and questionable pneumonia. She also had CHF on chest x-ray. Patient was treated with rate control medications, her chads vas score is 3 and therefore started on Eliquis. Her heart rate is controlled with metoprolol 100 mg daily and Cardizem 120 mg daily, she is on full dose of Eliquis at 5 mg twice a day as her renal function body weight allows it. She is being started on Lasix 20 mg once a day for diuresis, and has been advis ed to follow a low-salt diet. She will need to follow-up with the primary care provider within the next week, further optimization's of rate control medications can be done as an outpatient. She will need follow-up with the disaster or damage control specialist to see if she is a candidate for cardioversion. Discharge diagnosis: Afib, chf exacerbation - Time Spent with Patient Total time spent providing and/or coordinating discharge services: Greater than 30 minutes Medical - DS: Exam - Constitutional Vitals: Vital Signs Temp Pulse Resp BP BP Pulse Ox 02/16/19 09:13 106 H 16 02/16/19 07:37 97.8 F 20 142/75 94 02/16/19 04:39 97.8 F 24 H 115/59 92 02/15/19 23:59 97.5 F 22 119/55 92 02/15/19 20:36 97.6 F 22 114/87 94 02/15/19 16:26 98.4 F 20 123/87 95 02/15/19 12:00 98.1 F 20 107/81 93 Intake and Output 02/15/19 02/16/19 02/16/19 21:59 05:59 13:59 Intake Total 1150 260 Output Total 1300 300 700 Balance -150 -40 -700 Intake: Oral 1150 260 Output: Void Amount 1300 300 300 Stool 400 Other: Meal Dinner Breakfast Percent of Meal Consumed 100% 100% Feeding Ability Independent Urine Appearance Clear Clear Urine Color Bright Yellow Bright Yellow Urine Odor Normal Normal Stool Size Small Stool Color Brown Stool Consistency Soft # Bowel Movements 1 1 # of times incontinent of 0 Bowels Weight 145 lb 4.8 oz Additional comments: Constitutional; Afebrile, cooperative, alert, not in distress. Respiratory system: Air Entry equal on both sides, No crackles or wheezing, no rhonchi. CVS- Rate rhythm irregular, S1,S2 heard, no gallop, no rub. Abdomen- Soft nontender abdomen, no organomegaly, no tenderness, no guarding or rigidity, INS[employer]OR [employer]ING- AOOx3, moving all extremities, no gross focal deficit noted. Medical - DS: Data Labs on day of discharge: Labs from last 24 hours 02/16/19 02/16/19 03:34 03:34 WBC 7.1 RBC 4.77 Hgb 12.8 Hct 40.1 MCV 84.0 MCH 26.8 MCHC 32.0 RDW 16.2 H Plt Count 252 MPV 9.7 Total Counted 100 Seg Neutrophils % 55 Band Neutrophils % Not Reportable Lymphocytes % 32 Monocytes % (Manual) 8 Eosinophils % (Manual) 4 Basophils % (Manual) 1 Platelet Estimate Normal RBC Morphology Abnorm A Hypochromasia 1+ A Anisocytosis 1+ A Sodium 137 Potassium 3.3 Chloride 103 Carbon Dioxide 20 L Anion Gap 14.0 BUN 21 Creatinine 1.0 GFR Calculation 50 Glucose 80 Uric Acid 4.7 Calcium 8.8 Phosphorus 3.5 Magnesium 2.2 Total Bilirubin 0.6 Direct Bilirubin < 0.2 GGT 34 AST 29 ALT 34 Alkaline Phosphatase 69 Lactate Dehydrogenase 224 Total Protein 5.8 L Albumin 3.4 Globulin 2.4 Albumin/Globulin Ratio 1.4 Triglycerides 67 Preliminary micro results at discharge 02/13/19 14:47 Blood Culture - Preliminary Blood 02/13/19 14:56 Blood Culture - Preliminary Blood Medical - DS: A/P - Patient/Caregiver Discharge Instructions Activity: increase activity as tolerated Diet: Low Sodium (2gm) Additional Instructions: Please follow-up with your primary care provider in 1 week. Please take a diet rich in potassium. You have been started on metoprolol and diltiazem, these medications are to control your atrial fibrillation. Your primary care provider will adjust the medications. You have also been started on Eliquis this is a blood thinning medication, do not take aspirin Aleve Motrin while on this medicine. If you notice any blood in the stools blood in urine black stools please stop taking the medication and go to the emergency room. Please follow-up with the disaster or damage control specialist in 2 -4 weeks Go to the emergency room if you notice any worsening symptoms, chest pain shortness of breath dizziness or have any other acute concerns - Follow up Plan Follow up with: Marilu Amaya DO [Primary Care Provider] - 02/19/19 1:00 pm (Please check in at 12:45 pm) Mateusz Baires MD [Physician] - Disposition: Home, Self-Care Prognosis: Fair Rehab Potential: Fair I certify that the patient requires SNF services: No Overall status at discharge: patient is progressing back to baseline Medical - DS: Qual - VTE Deep Vein Thrombosis/Pulmonary Embolism Present on Admission: No
== END 2019-02-16 12:20 | disposition home or self-care (01) | DRG 308 ==
LOC: ED 12:04 → ICU 13:30
PROVIDERS: ADMIT Internal Medicine; ATTEND Internal Medicine